=== PATIENT | female | born 1985 | race African-American/Black ===

== ENCOUNTER 2016-04-29 16:38 | Emergency (ER) | payer MEDICAID ==
[~2016-04-29] VITALS: Ht 157.5 cm; Wt 90.7 kg
[~2016-04-29 16:38] MED LIST: DIFLUCAN150 MG PO; IBUPROFEN600 MG PO; IMIQUIMOD1 EACH TOPIC; METROGEL-VAGINA70 G1 VAGIN; NKM; NORCO 5-325 TA1 EACH ORAL; PHENAZOPYRIDIN200 MG ORAL; VALIUM5 MG ORAL
[2016-04-29] MEDS ORDERED: IBUPROFEN600 MG ORAL (17:41)
[2016-04-29 18:06] VITALS: BP 143/84
--- NOTE | 2016-04-29 21:30 | Emergency Room Report ---
History of Present Illness General Chief Complaint: Lower Extremity Injury Source: Patient (UMER FERRERA) Present Illness HPI The patient is a 30-year-old female presenting with right knee pain which began today. The patient states that she was getting into her car, planted her right foot, and twisted. Patient felt immediate pain to the right knee. Pain is described as an 8/10 sharp sensation it is worse with movement. The patient denies prior injury to the knee the patient denies any numbness or tingling of the extremity and denies any radiating pain. The patient denies any other symptoms (UMER FERRERA.Silvia) Allergies: Coded Allergies: No Known Allergies (Unverified , 02/27/13) Patient History Past Medical History: see triage record Pertinent Family History: none Last Menstrual Period: 04/14/16 Now: No Reviewed Nursing Documentation: PMH: Agreed, PSxH: Agreed (UMER FERRERA) Nursing Documentation-PMH Hx Hypertension: No (UMER FERRERA.Silvia) Review of Systems All Other Systems: negative except mentioned in HPI (UMER FERRERA P.Silvia) Physical Exam Vital Signs Date Time Temp Pulse Resp B/P Pulse Ox O2 Delivery O2 Flow Rate FiO2 04/29/16 16:59 97.9 89 16 143/84 99 Room Air Sp02 EP Interpretation: reviewed, normal General Appearance: no apparent distress, alert, GCS 15, non-toxic Head: normocephalic, atraumatic Eyes: bilateral eye PERRL, bilateral eye normal inspection Musculoskeletal: back normal, gait/station normal, normal range of motion, no calf tenderness, tender - TTP over R medial knee Neurologic: alert, oriented x3, responsive, motor strength/tone normal, sensory intact, speech normal Psychiatric: judgement/insight normal, memory normal, mood/affect normal, no suicidal/homicidal ideation Skin: normal color, no rash, warm/dry, well hydrated Lymphatic: no adenopathy (UMER FERRERA.ARussell) Procedures Splinting Splinting : Consent: Verbal Location: R knee Pre-Made Type: ZEB wrap Pre-Proc Neuro Vasc Exam: normal Post-Proc Neuro Vasc Exam: normal Patient Tolerated: Well Complications: None (UMER FERRERA.ARussell) Medical Decision Making PA Attestation Dr. Huntley is my supervising physician. Patient management was discussed with my supervising physician (UMER FERRERA) Diagnostic Impression: Primary Impression: Sprain of right knee ER Course The patient is a 30-year-old female presenting with right knee pain which began today Ddx considered include but not limited to ligament injury, fracture, contusion , muscle sprain/strain PE:vitals within [place] No apparent distress Right knee: There is tenderness to palpation over the medial aspect of the knee. Full active range of motion. No joint laxity. No edema. No ecchymosis. Sensation intact to light touch. Normal gait X-ray of the knee is unremarkable. Zeb wrap was placed over the knee and patient was provided crutches. ER precautions are given and the patient is given a prescription for Motrin. Patient is advised she may need an MRI if pain continues or worsens. (UMER FERRERA) ER Course Scribe documentation reviewed by me and is accurate. (Taz Huntley M.D.) Other X-Ray Diagnostic Results Other X-Ray Diagnostic Results : X-Ray Ordered: R knee Date: Apr 29, 2016 EP Interpretation: Yes Findings: no fractures, no dislocation, no soft tissue swelling Number of Views: 3 PA Scribe Text I am acting as scribe for my supervising physician. My supervising physician's interpretation of the R knee xrays are there are no fractures, dislocations or soft tissue swelling. (UMER FERRERA) Last Vital Signs Date Time Temp Pulse Resp B/P Pulse Ox O2 Delivery O2 Flow Rate FiO2 04/29/16 18:06 97.9 80 16 143/84 99 Room Air Status: improved (UMER FERRERAARussell) Disposition: HOME, SELF-CARE Condition: Improved Scripts Ibuprofen* (MOTRIN*) 600 Mg Tablet 600 MG ORAL Q8H Y for For Pain, #30 TAB 0 Refills Prov: UMER FERRERA 04/29/16 [facility]errals[facility] (PCP) Patient Instructions: Knee Sprain Additional Instructions: I discussed my findings with the patient. All questions and concerns have been answered. Treatment and medication compliance have been addressed. I advised the patient that they need to follow up with PMD in 3-5 days. Return to ED if pain remains or worsens, numbness or tingling occurs, new rash is noticed, fever is noticed, or if needed for any reason. Patient verbalized understanding of discharge instructions. The patient is advised she needs to obtain an MRI if pain continues UMER FERRERA Apr 29, 2016 21:30 Taz Huntley M.D. May 01, 2016 04:40
--- NOTE | 2016-05-01 12:56 | Diagnostic Imaging Report ---
Indications: PAIN Technique: Three views of the right knee Comparison: None Findings: No acute fractures. No dislocations. Joint spaces are preserved. No radiopaque foreign body. Normal mineralization. Impression: No acute process
== END 2016-04-29 17:55 | disposition home or self-care (01) ==
LOC: EMR 17:15
DX: S83.91XA Sprain of unspecified site of right knee, initial encounter (principal); X50.1XXA Overexertion from prolonged static or awkward postures, initial encounter; Y92.89 Other specified places as the place of occurrence of the external cause
CPT/HCPCS: 29530; 99283

== ENCOUNTER 2016-06-30 07:49 | Emergency (ER) | payer MEDICAID ==
[~2016-06-30] VITALS: Ht 157.5 cm; Wt 90.7 kg
[~2016-06-30 07:49] MED LIST changes: +IBUPROFEN600 MG ORAL
[2016-06-30 08:22] LABS: APPEARANCE,URINE CLEAR; KETONES,URINE NEGATIVE (NEGATIVE); LEUKOCYTE ESTERASE ,URINE NEGATIVE (NEGATIVE); NITRITE,URINE NEGATIVE (NEGATIVE); PH,URINE 6 (4.5-8.0); PROTEIN,URINE 1+ (NEGATIVE); UROBILINOGEN,URINE 1 MG/DL (0.0-1.0)
[2016-06-30 08:35] LABS: BACTERIA,URINE FEW /HPF; MUCUS,URINE MODERATE /LPF (NONE/OCC); RBC,URINE 0-2 /HPF (0 - 2); SQUAMOUS EPITHELIAL CELL,UR MODERATE /LPF (NONE/OCC)
[2016-06-30 08:38] VITALS: BP 126/67
[2016-06-30] MEDS ORDERED: METRONIDAZOLE500 MG ORAL (08:50)
--- NOTE | 2016-06-30 08:57 | Emergency Room Report ---
History of Present Illness General Chief Complaint: Female Urogenital Problems Source: Patient Present Illness HPI [id number] presents with foul smelling discharge "feels like bacterial vaginosis I had before" that started after unprotected intercourse with boyfriend recently. Denies dysuria, polyuria, abd pain, fever/chills, nausea/vomiting/diarrhea, previous abd/pelvic surgery. Patient has been "doucheing" and placed "freshner gel" inside vagina earlier today. States HIV - as per recent test. No history of other STD. Allergies: Coded Allergies: No Known Allergies (Unverified , 02/27/13) Patient History Past Medical History: none Past Surgical History: none Pertinent Family History: none Social History: Denies: alcohol use, drug use, smoking Last Menstrual Period: 06/14/16 Now: No Immunizations: UTD Reviewed Nursing Documentation: PMH: Agreed, PSxH: Agreed Nursing Documentation-PMH Past Medical History: No History, Except For Hx Hypertension: No Review of Systems All Other Systems: negative except mentioned in HPI Physical Exam Vital Signs Date Time Temp Pulse Resp B/P Pulse Ox O2 Delivery O2 Flow Rate FiO2 06/30/16 07:52 98.2 70 14 126/67 98 Room Air Sp02 EP Interpretation: reviewed, normal General Appearance: normal inspection, well appearing, no apparent distress, alert Head: atraumatic ENT: normal ENT inspection, hearing grossly normal, normal voice Neck: normal inspection, full range of motion, supple, no bony tend Respiratory: normal inspection, lungs clear, normal breath sounds, no respiratory distress, no retraction, no wheezing Cardiovascular #1: regular rate, rhythm, no edema Gastrointestinal: normal inspection, normal bowel sounds, non tender, soft, no guarding, no hernia Genitourinary: no CVA tenderness, other - Patient refused pelvic, wet mount Musculoskeletal: normal inspection, back normal, normal range of motion, Titus' s Sign negative Neurologic: normal inspection, alert, oriented x3, responsive, client relationship manager III-XII nml as tested, motor strength/tone normal, speech normal Psychiatric: normal inspection, judgement/insight normal, mood/affect normal Skin: normal inspection, normal color, no rash Medical Decision Making Diagnostic Impression: Primary Impression: Vaginosis ER Course Not UA with squamos, mucous Unlikely G&C given UA without WBC I wanted to do wet mount to check for BV but patient refused because she has been "douching" and has placed freshner gel I actually concur, wonder if possible false negative results on wet mount Will tx empirically with Flagyl She understands importance of not drinking ETOH DC home Last Vital Signs Date Time Temp Pulse Resp B/P Pulse Ox O2 Delivery O2 Flow Rate FiO2 06/30/16 08:38 98.2 14 126/67 98 Room Air 06/30/16 07:52 70 Status: improved Disposition: HOME, SELF-CARE Condition: Improved Scripts Metronidazole* (FLAGYL*) 500 Mg Tablet 500 MG ORAL BID for 7 Days, #14 TAB 0 Refills Prov: NAHID MIGUEL M.D. 06/30/16 Patient Instructions: Bacterial Vaginosis, Yoen-[id number] NAHID MIGUEL M.D. Jun 30, 2016 08:57
[2016-06-30 08:58] VITALS: BP 120/65
== END 2016-06-30 09:01 | disposition home or self-care (01) ==
LOC: EMR 08:50
DX: N76.0 Acute vaginitis (principal)
CPT/HCPCS: 81003; 81025; 99283

== ENCOUNTER 2017-09-22 17:15 | Emergency (ER) | payer MEDICAID ==
[~2017-09-22] VITALS: Ht 157.5 cm; Wt 85.7 kg
[~2017-09-22 17:15] MED LIST changes: +METRONIDAZOLE500 MG ORAL
--- NOTE | 2017-09-22 18:05 | Emergency Room Report ---
History of Present Illness General Chief Complaint: Back Pain-No Injury Source: Patient Present Illness HPI 32-year-old female with no significant past medical history here complaining of right gluteal pain after lifting heavy objects 1 day. Eyes injury. Eyes pain radiation, tingling, numbness. The pain intermittent and 3 out of 10 upon sitting. Patient further complains of diffuse insect bites very pruritic all over her body. Fever/chills/SOB/chest pain/palpitation. He has taken ibuprofen for pain with no improvement. Allergies: Coded Allergies: No Known Allergies (Unverified , 02/27/13) Patient History Past Medical History: see triage record Past Surgical History: none Pertinent Family History: none Last Menstrual Period: 09/19/17 Now: No Immunizations: UTD Reviewed Nursing Documentation: PMH: Agreed; PSxH: Agreed Nursing Documentation-PMH Past Medical History: No History, Except For Hx Hypertension: No Review of Systems All Other Systems: negative except mentioned in HPI Physical Exam Vital Signs Date Time Temp Pulse Resp B/P (MAP) Pulse Ox O2 Delivery O2 Flow Rate FiO2 09/22/17 17:46 98.6 71 16 124/81 97 Room Air 98.6 Sp02 EP Interpretation: reviewed, normal General Appearance: normal inspection, well appearing, no apparent distress, alert Head: normocephalic, atraumatic Eyes: bilateral eye normal inspection, bilateral eye PERRL ENT: normal ENT inspection, hearing grossly normal Neck: normal inspection, full range of motion, supple, thyroid normal, no meningismus Respiratory: normal inspection, chest non-tender, lungs clear, normal breath sounds, no rhonchi Cardiovascular #1: normal inspection, normal peripheral pulses, regular rate, rhythm, no murmur Gastrointestinal: normal inspection, normal bowel sounds, non tender, soft Rectal: deferred Genitourinary: deferred Musculoskeletal: back normal, digits/nails normal, other - right gluteal tenderness to palpation Neurologic: normal inspection, alert, oriented x3, responsive Psychiatric: normal inspection, judgement/insight normal, memory normal Skin: normal color, warm/dry, other - Diffuse noninfected insect bites in all extremities Lymphatic: normal inspection, no adenopathy Medical Decision Making PA Attestation all treatment plans, diagnosis, orders were reviewed and discussed with my supervising physician Dr. Denson Diagnostic Impression: Primary Impression: Muscle spasm Additional Impression: Insect bite ER Course 32-year-old female with no significant past medical history here complaining of right gluteal pain after lifting heavy objects 1 day. Eyes injury. Eyes pain radiation, tingling, numbness. The pain intermittent and 3 out of 10 upon sitting. Patient further complains of diffuse insect bites very pruritic all over her body. Fever/chills/SOB/chest pain/palpitation. He has taken ibuprofen for pain with no improvement. Ddx considered but are not limited to muscle spasm, insect bites Vital signs: are WNL, pt. is afebrile H&PE are most consistent with muscle spasm insect bite ORDERS: naproxen 500 mg when necessary, cortisone cream, Benadryl ED INTERVENTIONS: None required at this time. DISCHARGE: At this time pt. is stable for d/c to home. Will provide printed patient care instructions, and any necessary prescriptions. Care plan and follow up instructions have been discussed with the patient prior to discharge. Last Vital Signs Date Time Temp Pulse Resp B/P (MAP) Pulse Ox O2 Delivery O2 Flow Rate FiO2 09/22/17 17:46 98.6 71 16 124/81 97 Room Air 98.6 Disposition: HOME, SELF-CARE Condition: Stable Scripts Diphenhydramine HCl (Benadryl) 25 Mg Capsule 25 MG PO BID, #30 CAP Prov: Carl Beltre P.A. 09/22/17 Hydrocortisone (Hydrocortisone Cream 2.5%) Y Cream.appl 1 APPLIC TP BID for 10 Days, #1 TUBE Prov: Carl Beltre P.A. 09/22/17 Naproxen* (NAPROXEN*) 500 Mg Tablet 500 MG ORAL TWICE A DAY, #30 TAB Prov: Carl Beltre P.A. 09/22/17 Patient Instructions: Adductor Muscle Strain With Rehab-SportsMed, Rash Additional Instructions: . Medication as directed, and fever chills or signs of emergency room, avoid strenuous physical activity, apply heat/ice pack to affected area Carl Beltre Sep 22, 2017 18:05
[2017-09-22] MEDS ORDERED: HYDROCORTISONE30 G2 TP (18:07)
[2017-09-22] MEDS ORDERED: BENADRYL25 M3 PO (18:07)
[2017-09-22] MEDS ORDERED: NAPROXEN500 M2 ORAL (18:07)
[2017-09-22 18:14] VITALS: BP 124/81
== END 2017-09-22 18:30 | disposition home or self-care (01) ==
LOC: EMR 18:15
DX: M62.838 Other muscle spasm (principal); T14.8XXA Other injury of unspecified body region, initial encounter; W57.XXXA Bitten or stung by nonvenomous insect and other nonvenomous arthropods, initial encounter; Y92.9 Unspecified place or not applicable
CPT/HCPCS: 99284

== ENCOUNTER 2017-12-17 11:43 | Emergency (ER) | payer MEDICAID ==
[~2017-12-17] VITALS: Ht 157.5 cm; Wt 85.7 kg
[~2017-12-17 11:43] MED LIST changes: +BENADRYL25 M3 PO; +HYDROCORTISONE30 G2 TP; +NAPROXEN500 M2 ORAL
[2017-12-17 12:30] VITALS: BP 123/83
--- NOTE | 2017-12-17 12:32 | Emergency Room Report ---
History of Present Illness General Chief Complaint: Vaginal Source: Patient Present Illness HPI 32-year-old female patient presents ER complaining of foul-smelling odor in her urine for the past week. Reports history of bacterial vaginosis" and thinks this may be similar". Denies dysuria or hematuria. Reports small amount of white clear vaginal discharge. Reports sexual activity with single partner, denies concern for STI. Denies rash or lesions. Denies fever, chest pain, shortness breath, vomiting, abdominal pain, flank pain. Reports not taking any control medications. Reports last menstrual period was supposed to be 2 days ago but is slightly and would like to have a test Allergies: Coded Allergies: No Known Allergies (Unverified , 02/27/13) Patient History Past Medical History: see triage record Last Menstrual Period: 04/26/17 Now: No - "Possible" Reviewed Nursing Documentation: PMH: Agreed; PSxH: Agreed Nursing Documentation-PMH Past Medical History: No History, Except For Hx Hypertension: No Review of Systems All Other Systems: negative except mentioned in HPI Physical Exam Vital Signs Date Time Temp Pulse Resp B/P (MAP) Pulse Ox O2 Delivery O2 Flow Rate FiO2 12/17/17 11:49 98.6 81 20 123/83 98 Room Air 98.6 Sp02 EP Interpretation: reviewed, normal General Appearance: well appearing, no apparent distress, alert, GCS 15, non- toxic Head: normocephalic, atraumatic Eyes: bilateral eye normal inspection, bilateral eye PERRL ENT: hearing grossly normal, normal pharynx, no angioedema, normal voice, uvula midline, moist mucus membranes Neck: full range of motion Respiratory: lungs clear, normal breath sounds, no rhonchi, no respiratory distress, no accessory muscle use, no wheezing, speaking full sentences Cardiovascular #1: regular rate, rhythm, no edema Gastrointestinal: non tender, soft, no mass, non-distended, no guarding, no rebound Genitourinary: no CVA tenderness, deferred Musculoskeletal: back normal, digits/nails normal, gait/station normal, normal range of motion, non-tender Neurologic: alert, oriented x3, responsive, motor strength/tone normal, sensory intact Psychiatric: mood/affect normal Skin: no rash Lymphatic: no adenopathy Medical Decision Making PA Attestation Dr. Maldonado is my supervising Physician whom patient management has been discussed with. Diagnostic Impression: Primary Impression: Bacterial vaginosis ER Course Pt presents to ED c/o urinary symptoms. DDX considered but are not limited to cystitis, pyelonephritis, STI, vaginitis, . No abdominal tenderness to palpation, negative varitype operator, negative Lai, negative Rovsing, low suspicion for cholecystitis or appendicitis, does not require imaging or labs at this time. VITAL SIGNS are WNL, patient is afebrile. Ordered UA and urine . Pelvic exam deferred. ER COURSE patient symptoms and history consistent with bacterial vaginosis, will provide patient with treatment, instructed patient to follow-up with primary care provider. UA results show no acute infection, do not indicate UTI, will not treat with abx. urine negative. Results discussed with the patient. If concern for STI, followup with STI clinic for testing and treatment. Denies STI concern. Patient is resting comfortably in chair, nontoxic appearing, in no acute distress. Patient states they feel better and is ready to go home. DISCHARGE -Rx provided for Flagyl. Do not drink while on medication. Patient is stable for discharge. Patient resting comfortably, in no acute distress, nontoxic appearing, talking without difficulty. Will provide with patient care instructions and any necessary prescriptions. Patient understands and agrees to treatment plan. Patient encouraged to drink plenty of fluids. Patient to take medication as instructed. Care plan and follow-up instructions provided. Patient questions asked and answered. Reports understanding and agreement to treatment plan. Patient instructed to follow-up with primary care provider in 3 - 5 days. ER precautions given. Patient instructed to return to ER immediately for any new or worsening of symptoms. Including but not limited to fever, abdominal pain , intractable vomiting. - Please note that this Emergency Department Report was dictated using [employer] solution mixer technology software, occasionally this can lead to erroneous entry secondary to interpretation by the dictation equipment. Labs Test 12/17/17 12:17 Urine Color Yellow Urine Appearance Slightly cloudy Urine pH 6 (4.5-8.0) Urine Specific [place] 1.015 (1.005-1.035) Urine Protein Negative (NEGATIVE) Urine Glucose (UA) Negative (NEGATIVE) Urine Ketones Negative (NEGATIVE) Urine Blood Negative (NEGATIVE) Urine Nitrite Negative (NEGATIVE) Urine Bilirubin Negative (NEGATIVE) Urine Urobilinogen 1 MG/DL (0.0-1.0) Urine Leukocyte Esterase 1+ (NEGATIVE) Urine RBC 0-2 /HPF (0 - 2) Urine WBC 2-4 /HPF (0 - 2) Urine Squamous Epithelial Cells Moderate /LPF (NONE/OCC) Urine Bacteria Few /HPF (NONE) Urine HCG, Qualitative Negative (NEGATIVE) Last Vital Signs Date Time Temp Pulse Resp B/P (MAP) Pulse Ox O2 Delivery O2 Flow Rate FiO2 12/17/17 11:49 98.6 81 20 123/83 98 Room Air 98.6 Disposition: HOME, SELF-CARE Condition: Stable Scripts Metronidazole* (FLAGYL*) 500 Mg Tablet 500 MG ORAL BID for 7 Days, #14 TAB Prov: Wai Teixeira 12/17/17 Referrals: [facility] (PCP) Patient Instructions: Bacterial Vaginosis, [id number] Additional Instructions: Followup with primary care provider and followup with and./or OBGYN. Drink plenty of fluids. Take medications as directed. Do not drink alcohol while taking Flagyl. Follow-up with STI clinic or PCP for testing and treatment as needed. Alert partners of need for testing. Avoid sexual activity for next 2 weeks. Patient questions asked and answered. ER precautions given, patient instructed to return to ER immediately for any new or worsening of symptoms. Wai Teixeira Dec 17, 2017 12:32
[2017-12-17 12:39] LABS: BILIRUBIN, URINE NEGATIVE (NEGATIVE); GLUCOSE, URINE (UA) NEGATIVE (NEGATIVE); KETONES,URINE NEGATIVE (NEGATIVE); LEUKOCYTE ESTERASE ,URINE 1+ (NEGATIVE); NITRITE,URINE NEGATIVE (NEGATIVE); PH,URINE 6 (4.5-8.0); PROTEIN,URINE NEGATIVE (NEGATIVE); UROBILINOGEN,URINE 1 MG/DL (0.0-1.0)
[2017-12-17 12:56] LABS: APPEARANCE,URINE SLIGHTLY CLOUDY; COLOR,URINE YELLOW
[2017-12-17] MEDS ORDERED: METRONIDAZOLE500 MG ORAL (13:06)
[2017-12-17 15:30] VITALS: BP 123/83
== END 2017-12-17 15:30 | disposition home or self-care (01) ==
LOC: EMR 12:23
DX: N76.0 Acute vaginitis (principal); B96.89 Other specified bacterial agents as the cause of diseases classified elsewhere
CPT/HCPCS: 81003; 81025; 99282